=== PATIENT | female | born 1975 | race Caucasian/White ===

== ENCOUNTER → 2017-01-27 | Outpatient (CLI) | payer OTHER ==
[2015-07-28 10:45] VITALS: BP 112/58
--- NOTE | 2017-01-27 09:49 | KCIC ---
CT MAXILLOFACIAL WO CONTRAST dated 01/27/2017 9:30 AM Indication: Recurrent maxillary sinusitis, drainage, headaches, cough Comparison: No comparison is available. Technique: Contiguous axial imaging the maxillofacial bones obtained with thin cut coronal and sagittal reconstruction. One or more of the following individualized dose reduction techniques were utilized for this examination: 1. Automated exposure control 2. Adjustment of the mA and/or kV according to patient size 3. Use of iterative reconstruction technique Findings: Mild mucosal thickening of the bilateral maxillary sinus and bilateral ethmoid air cells. The frontal and sphenoid sinuses are clear. Ostiomeatal units and infundibula are patent. No air-fluid level or polypoid lesion identified. Moderate nasal septal deviation to the right. There is mild bilateral nasal turbinates hypertrophy. No bony destructive process or periostitis. The mastoid air cells and middle ears are clear. Limited imaged portions the brain parenchyma unremarkable. No significant soft tissue abnormality. IMPRESSION: 1. Minimal mucosal thickening of the maxillary and ethmoid sinuses. The ostiomeatal units and infundibula are patent. 2. Rightward nasal septal deviation. Electronically signed by: Saul Dowd MD (01/27/2017 9:45 AM) [id number]
== END | disposition home or self-care (01) ==
LOC: KCIC CT 09:23
PROVIDERS: ATTEND Family Medicine
DX: J32.0 Chronic maxillary sinusitis (principal); J34.2 Deviated nasal septum; G43.909 Migraine, unspecified, not intractable, without status migrainosus
CPT/HCPCS: 70486

== ENCOUNTER → 2018-05-18 | Outpatient (CLI) | payer OTHER ==
[2015-07-28 10:45] VITALS: BP 112/58
--- NOTE | 2018-05-18 16:31 | KCIC ---
CT study of the maxillofacial bones without contrast-CT study of the sinuses Clinical indications: Recurrent maxillary sinusitis. Congestion. Pain. Cough. Recurrent infections. TECHNIQUE: Noncontrast helical CT scanning of the paranasal sinuses was performed. Multiplanar 2-D reconstructions were generated. PQRS compliance Statement One or more of the following individualized dose reduction techniques were utilized for this study: 1. Automated exposure control 2. Adjustment of the mA and/or kV according to patient size 3. Use of iterative reconstruction technique FINDINGS: Postoperative changes of the upper medial wall of both maxillary sinuses is seen. There is mild circumferential mucosal thickening of the left maxillary sinus measuring up to 3.5 mm in thickness along the floor. There is less prominent mucosal thickening of the floor of the right maxillary sinus measuring up to 2.5 mm in thickness. Minimal mucosal thickening is seen within the surgical opening of both maxillary sinuses. Postoperative changes of both ethmoid sinuses are seen. There is mild mucosal thickening of the surgical bed of the left ethmoid sinus. The frontal sinuses and right sphenoid sinus are clear. There is mild circumferential mucosal thickening of the left sphenoid sinus which measures up to 7 mm in greatest thickness. No air-fluid levels are evident. No prominent polyp is seen within the nasal passageway. There is moderate mucosal thickening of the middle and inferior turbinates bilaterally and both sides of the nasal septum. No significant nasal septal deviation is seen. The adenoids are not abnormally thickened. Middle ear cavities and mastoid sinuses are clear. No lytic process is seen. No soft tissue mass is evident. IMPRESSION: There is mild mucosal thickening of the maxillary sinuses bilaterally and the left sphenoid sinus and the surgical bed of the left ethmoid sinus. Otherwise no significant opacification of the paranasal sinuses is seen and no air-fluid levels are evident. Electronically signed by: Krishna Lewis MD (05/18/2018 4:28 PM) [place] [id number]
== END | disposition home or self-care (01) ==
LOC: KCIC CT 10:22
PROVIDERS: ATTEND Family Medicine
DX: J01.01 Acute recurrent maxillary sinusitis (principal); J34.89 Other specified disorders of nose and nasal sinuses
CPT/HCPCS: 70486

== ENCOUNTER → 2019-03-26 | Outpatient (CLI) | payer OTHER ==
[2015-07-28 10:45] VITALS: BP 112/58
--- NOTE | 2019-03-26 15:17 | KCIC ---
Bilateral diagnostic digital mammograms with 3-D tomosynthesis: Reason for examination: Right breast lump. Previous excisional biopsy in the superior breast. Comparison is made to previous study dated 12/27/2017. Bilateral mammograms in CC and oblique projections were obtained with 2-D imaging and 3-D tomosynthesis imaging on a Siemens Inspiration unit and reviewed on the workstation. Interpretation was made with the benefit of CAD. The skin and nipples show no abnormalities. No abnormal axillary lymph nodes are seen. The breast parenchyma shows scattered fatty and fibroglandular density. (Breast density: Category B.) There are changes consistent with previous excisional biopsy site at the 10:00 C position which is unchanged. There are no new dominant masses, suspicious calcifications or architectural distortion. Impression: Probable post op changes from excisional biopsy at the 10:00 C position of the right breast. No abnormality seen inferiorly in the area of clinical concern. Ultrasound to follow. BI-RADS Category 0: Incomplete. Needs additional imaging evaluation. Right breast ultrasound: Ultrasound examination of the right breast was performed with attention to the area of clinical concern and the axilla. No discrete cystic or solid nodule or architectural distortion is seen. No abnormal appearing lymph nodes are seen in the right axilla. IMPRESSION: No abnormality seen in the right breast with ultrasound evaluation. Recommend clinical follow-up and routine mammographic follow-up. BI-RADS Category 2: Benign. "Our facility is accredited by the [employer] Mammography Program." This patient's information has been entered into a reminder system for the patient to be notified with the results of her examination and a target date for the next mammogram. Electronically signed by: Bee Moran MD (03/26/2019 3:14 PM) [id number]
== END | disposition home or self-care (01) ==
LOC: KCIC MAMMO 12:41
PROVIDERS: ATTEND Family Medicine
DX: N60.11 Diffuse cystic mastopathy of right breast (principal)
CPT/HCPCS: 76641; 77066; G0279; 77062